=== PATIENT | female | born 1930 | race Caucasian/White ===

== ENCOUNTER 2017-12-16 23:43 | Inpatient (IN) | payer MEDICARE ==
[~2017-12-16] VITALS: Ht 165.1 cm; Wt 89.7 kg
[2017-12-17 01:47] LABS: Basophils # (auto) 0.1 uL; Basophils % (auto) 0.5 % (0.0-2.0); Eosinophils # (auto) 0 uL; Eosinophils % (auto) 0.3 % (0.0-7.0); Hematocrit 40.1 % (36.0-46.0); Hemoglobin 13.2 g/dL (12.2-16.2); Lymphocytes # (auto) 0.4 uL; Mean Corpuscular Hemoglobin 30.3 pg (28.0-32.0); Mean Corpuscular Hgb Conc. 32.9 g/dL (32.0-36.0); Mean Corpuscular Volume 92.3 fL (80.0-100.0); Monocytes # (auto) 0.6 uL; Neutrophils # (auto) 13.9 uL; Neutrophils % (auto) 92.2 % (37.0-80.0); Platelet Count (auto) 233 10^3/uL (140-450); Red Blood Cells 4.35 10^6/uL (4.0-5.20); Red Cell Distribution Width 14.8 % (11.8-14.3); White Blood Cell 15.1 10^3/uL (4.4-10.8)
[2017-12-17 01:58] LABS: Anion Gap 8 (5-15); Blood Urea Nitrogen 14 mg/dL (7-18); Carbon Dioxide 27 mmol/L (21-32); Chloride 107 mmol/L (98-107); Glucose 131 mg/dL (74-106); Potassium 4.2 mmol/L (3.5-5.1); Sodium 142 mmol/L (136-145)
[2017-12-17 01:59] LABS: Alanine Aminotransferase 17 U/L (13-56); Albumin 3.2 g/dL (3.4-5.0); Aspartate Aminotransferase 15 U/L (15-37); Calcium 8.9 mg/dL (8.5-10.1); GFR African American 62 mL/min; GFR Non-African American 51 mL/min
[2017-12-17 02:04] LABS: Alkaline Phosphatase 86 U/L (45-117); Bilirubin, Total 0.6 mg/dL (0.2-1.0); Total Protein 6.9 g/dL (6.4-8.2)
[2017-12-17] MEDS ORDERED: IPRATROPIUM BROM 0.5 MG/2.5ML INH SOL NEB ONE (02:45)
[2017-12-17] MEDS ORDERED: ALBUTEROL SULF 2.5 MG/0.5ML(0.5%) NEB SOLN NEB ONE (02:45)
[2017-12-17] MEDS ORDERED: methylPREDNISolone SOD SUCC 125 MG/2 ML VL IV ONE (02:45)
[2017-12-17] MEDS ORDERED: ACETAMINOPHEN 325 MG TAB PO PRN (05:30)
[2017-12-17] MEDS: LEVOFLOXACIN 500MG 100 ML IV SCH ×2 (05:30→11:38)
[2017-12-17] MEDS ORDERED: ONDANSETRON HCL 4 MG/2 ML VIAL IV PRN (05:30)
[2017-12-17] MEDS ORDERED: NITROGLYCERIN 0.4 MG SL TAB SL PRN (05:30)
[2017-12-17] MEDS ORDERED: MORPHINE SULFATE 8mg/ml INJ SDV IV PRN (05:30)
[2017-12-17 09:33] VITALS: BP 93/52
[2017-12-17] MEDS ORDERED: methylPREDNISolone SOD SUCC 125 MG/2 ML VL IV SCH (10:00)
[2017-12-17] MEDS: ENOXAPARIN SOD 40 MG/0.4 ML SYRINGE SC SCH (11:36)
[2017-12-17] MEDS: FAMOTIDINE 20 MG TAB PO SCH ×2 (11:36→23:10)
[2017-12-17 12:41] VITALS: BP 97/49
[2017-12-17] MEDS: SODIUM CHLORIDE 0.9% 1,000 ML IV SCH (13:00)
[2017-12-17] MEDS ORDERED: methylPREDNISolone SOD SUCC 40 MG/ML VL IV SCH (13:15)
[2017-12-17] MEDS ORDERED: methylPREDNISolone SOD SUCC 40 MG/ML VL IV ONE (13:15)
[2017-12-17] MEDS ORDERED: LEVOFLOXACIN 750MG 150 ML IV ONE (13:15)
[2017-12-17 14:38] VITALS: BP 119/64
[2017-12-17 17:00] VITALS: BP 99/63
[2017-12-17 21:52] VITALS: BP 104/57
[2017-12-17] MEDS: ATORVASTATIN 20 MG TAB PO SCH (23:10)
[2017-12-17] MEDS: TEMAZEPAM 15 MG CAP PO PRN (23:11)
[2017-12-17] MEDS: MONTELUKAST SODIUM 10 MG TAB PO SCH (23:11)
[2017-12-18] MEDS: IPRATROPIUM BROM 0.5 MG/2.5ML INH SOL NEB PRN ×3 (02:00→19:27)
[2017-12-18] MEDS: ALBUTEROL SULF 2.5 MG/0.5ML(0.5%) NEB SOLN NEB PRN ×3 (02:00→19:27)
[2017-12-18 04:42] VITALS: BP 104/58
[2017-12-18] MEDS: SODIUM CHLORIDE 0.9% 1,000 ML IV SCH (05:52)
[2017-12-18 06:33] LABS: Basophils # (auto) 0 uL; Eosinophils # (auto) 0 uL; Hematocrit 34.9 % (36.0-46.0); Hemoglobin 11.6 g/dL (12.2-16.2); Lymphocytes # (auto) 0.6 uL; Lymphocytes % (auto) 3.9 % (10.0-50.0); Mean Corpuscular Hemoglobin 30.8 pg (28.0-32.0); Mean Corpuscular Hgb Conc. 33.3 g/dL (32.0-36.0); Mean Corpuscular Volume 92.5 fL (80.0-100.0); Monocytes # (auto) 1.1 uL; Monocytes % (auto) 6.6 % (0.0-12.0); Neutrophils # (auto) 14.5 uL; Neutrophils % (auto) 89.5 % (37.0-80.0); Nucleated Red Blood Cells % 0.1 %; Platelet Count (auto) 194 10^3/uL (140-450); Red Blood Cells 3.77 10^6/uL (4.0-5.20); Red Cell Distribution Width 15.1 % (11.8-14.3); White Blood Cell 16.2 10^3/uL (4.4-10.8)
[2017-12-18 06:52] LABS: Albumin 2.8 g/dL (3.4-5.0); BUN/Creatinine Ratio 22.1; Bilirubin, Total 0.6 mg/dL (0.2-1.0); Calcium 8.9 mg/dL (8.5-10.1); Magnesium 2.3 mg/dL (1.6-2.6); Potassium 4.1 mmol/L (3.5-5.1); Total Protein 6.6 g/dL (6.4-8.2)
[2017-12-18 09:18] VITALS: BP 97/55
[2017-12-18] MEDS ORDERED: LEVOFLOXACIN 750MG 150 ML IV SCH (10:00)
[2017-12-18] MEDS ORDERED: LEVOFLOXACIN 250MG 50 ML IV SCH (10:00)
[2017-12-18] MEDS: LEVOFLOXACIN 750MG 150 ML IV SCH (11:44)
[2017-12-18] MEDS: methylPREDNISolone SOD SUCC 40 MG/ML VL IV SCH ×2 (11:45→21:09)
[2017-12-18] MEDS: ENOXAPARIN SOD 40 MG/0.4 ML SYRINGE SC SCH (11:45)
[2017-12-18] MEDS: FAMOTIDINE 20 MG TAB PO SCH ×2 (11:45→21:09)
[2017-12-18 12:20] VITALS: BP 115/49
[2017-12-18] MEDS ORDERED: SODIUM CHLORIDE 0.9% 1,000 ML IV SCH (12:45)
[2017-12-18 17:07] VITALS: BP 96/52
[2017-12-18 21:09] LABS: Urine Bacteria NONE SEEN /hpf (None Seen); Urine Blood Negative /uL (Negative); Urine Specific Gravity 1.033 (1.001-1.035); Urine WBC 11 /hpf (0 - 5)
[2017-12-18] MEDS: MONTELUKAST SODIUM 10 MG TAB PO SCH (21:09)
[2017-12-18] MEDS: ATORVASTATIN 20 MG TAB PO SCH (21:09)
[2017-12-18] MEDS: TEMAZEPAM 15 MG CAP PO PRN (21:10)
[2017-12-18 22:00] VITALS: BP 107/58
[2017-12-19] MEDS ORDERED: LOPE7.5C PO
[2017-12-19] MEDS ORDERED: HYDR-4683 PO
[2017-12-19] MEDS ORDERED: MONT10TA23 PO
[2017-12-19] MEDS ORDERED: ACET-1156 PO
[2017-12-19] MEDS ORDERED: HYDR-3682 PO
[2017-12-19] MEDS ORDERED: HYOS0.1250 PO
[2017-12-19] MEDS ORDERED: POM SL
[2017-12-19] MEDS ORDERED: FLUT250M2 INH
[2017-12-19] MEDS ORDERED: POM PO
[2017-12-19] MEDS ORDERED: LORA-654 GT
[2017-12-19] MEDS ORDERED: DOCU100T15 PO
[2017-12-19] MEDS ORDERED: SIMV-13 PO
[2017-12-19] MEDS ORDERED: LETR2.5T6 PO
[2017-12-19] MEDS ORDERED: NYST1POW12 XX
[2017-12-19] MEDS ORDERED: IPRAAER6 IN (00:01)
[2017-12-19] MEDS ORDERED: UMEC1INH IN (00:01)
[2017-12-19 05:30] VITALS: BP 111/52
[2017-12-19 07:26] LABS: Basophils # (auto) 0 uL; Basophils % (auto) 0.1 % (0.0-2.0); Eosinophils # (auto) 0 uL; Hematocrit 33.7 % (36.0-46.0); Hemoglobin 11.1 g/dL (12.2-16.2); Lymphocytes # (auto) 0.4 uL; Lymphocytes % (auto) 3.9 % (10.0-50.0); Mean Corpuscular Hemoglobin 31.1 pg (28.0-32.0); Mean Corpuscular Hgb Conc. 33.1 g/dL (32.0-36.0); Monocytes # (auto) 0.7 uL; Monocytes % (auto) 6.7 % (0.0-12.0); Neutrophils # (auto) 9.6 uL; Neutrophils % (auto) 89.3 % (37.0-80.0); Platelet Count (auto) 201 10^3/uL (140-450); Red Blood Cells 3.58 10^6/uL (4.0-5.20); Red Cell Distribution Width 15.3 % (11.8-14.3); White Blood Cell 10.7 10^3/uL (4.4-10.8)
[2017-12-19 07:36] LABS: BUN/Creatinine Ratio 27.9; Calcium 8.6 mg/dL (8.5-10.1); Potassium 4.4 mmol/L (3.5-5.1)
[2017-12-19 08:00] VITALS: BP 118/60
[2017-12-19 09:00] VITALS: BP 118/60
[2017-12-19] MEDS: ENOXAPARIN SOD 40 MG/0.4 ML SYRINGE SC SCH (09:18)
[2017-12-19] MEDS: FAMOTIDINE 20 MG TAB PO SCH (09:18)
[2017-12-19] MEDS: LEVOFLOXACIN 750MG 150 ML IV SCH (09:18)
[2017-12-19] MEDS: methylPREDNISolone SOD SUCC 40 MG/ML VL IV SCH (09:18)
[2017-12-19] MEDS ORDERED: SACC250C PO (12:06)
[2017-12-19] MEDS ORDERED: LEVO750T2 PO (12:06)
[2017-12-19 12:38] VITALS: BP 118/60
[2017-12-19 13:00] VITALS: BP 110/70
== END 2017-12-19 15:10 | DRG 871 ==
LOC: EDBD 23:43 → ER 23:51 → TELE 23:52 → TELE-CENTR 12-17 09:00
PROVIDERS: ADMIT Nurse Practitioner; ATTEND Internal Medicine
DX: A41.9 Sepsis, unspecified organism (principal); J18.1 Lobar pneumonia, unspecified organism; J96.21 Acute and chronic respiratory failure with hypoxia; N17.0 Acute kidney failure with tubular necrosis; J44.0 Chronic obstructive pulmonary disease with (acute) lower respiratory infection; J44.1 Chronic obstructive pulmonary disease with (acute) exacerbation; K86.1 Other chronic pancreatitis; M48.54XA Collapsed vertebra, not elsewhere classified, thoracic region, initial encounter for fracture; J98.11 Atelectasis; Z99.81 Dependence on supplemental oxygen; D72.823 Leukemoid reaction; F03.90 Unspecified dementia, unspecified severity, without behavioral disturbance, psychotic disturbance, mood disturbance, and anxiety; I25.10 Atherosclerotic heart disease of native coronary artery without angina pectoris; I51.7 Cardiomegaly; J20.8 Acute bronchitis due to other specified organisms; M40.204 Unspecified kyphosis, thoracic region; M85.80 Other specified disorders of bone density and structure, unspecified site; T38.0X5A Adverse effect of glucocorticoids and synthetic analogues, initial encounter; Z82.49 Family history of ischemic heart disease and other diseases of the circulatory system; Z85.3 Personal history of malignant neoplasm of breast; Z90.11 Acquired absence of right breast and nipple
CPT/HCPCS: 36415; 71045; 71250; 80048; 80053; 80061; 81001; 83605; 83690; 83735; 83880; 84484; 85025; 87040; 87081; 93005; 94640; 94761; 96374; J1956

== ENCOUNTER → 2018-10-08 | Outpatient (CLI) | payer MEDICARE ==
[~2018-10-08] MED LIST: ACET-1156 PO; DOCU100T15 PO; FLUT250M2 INH; HYDR-3682 PO; HYDR-4683 PO; HYOS0.1250 PO; IPRAAER6 IN; LETR2.5T6 PO; LEVO750T2 PO; LOPE7.5C PO; LORA-654 GT; MONT10TA23 PO; NYST1POW12 XX; POM PO; POM SL; SACC250C PO; SIMV-13 PO; UMEC1INH IN
[2018-10-08 16:50] LABS: Basophils # (auto) 0.1 uL; Basophils % (auto) 0.7 % (0.0-2.0); Eosinophils # (auto) 0.3 uL; Eosinophils % (auto) 3.6 % (0.0-7.0); Hematocrit 41.6 % (36.0-46.0); Hemoglobin 13.6 g/dL (12.2-16.2); Lymphocytes # (auto) 1.1 uL; Lymphocytes % (auto) 13.2 % (10.0-50.0); Mean Corpuscular Hemoglobin 29.9 pg (28.0-32.0); Mean Corpuscular Hgb Conc. 32.8 g/dL (32.0-36.0); Mean Corpuscular Volume 91.1 fL (80.0-100.0); Monocytes # (auto) 0.9 uL; Monocytes % (auto) 10.9 % (0.0-12.0); Neutrophils # (auto) 5.7 uL; Neutrophils % (auto) 71.6 % (37.0-80.0); Platelet Count (auto) 279 10^3/uL (140-450); Red Blood Cells 4.56 10^6/uL (4.0-5.20); Red Cell Distribution Width 15.6 % (11.8-14.3)
[2018-10-08 16:57] LABS: Albumin 3.1 g/dL (3.4-5.0); Calcium 8.8 mg/dL (8.5-10.1); Potassium 4.4 mmol/L (3.5-5.1)
[2018-10-08 17:02] LABS: BUN/Creatinine Ratio 10.4; Bilirubin, Total 0.4 mg/dL (0.2-1.0); Total Protein 7.4 g/dL (6.4-8.2)
== END | disposition home or self-care (01) ==
LOC: LAB 15:54
PROVIDERS: ATTEND Internal Medicine
DX: C50.919 Malignant neoplasm of unspecified site of unspecified female breast (principal)
CPT/HCPCS: 36415; 80053; 83615; 85025

== ENCOUNTER → 2019-05-30 | Outpatient (CLI) | payer MEDICARE, MEDICAID ==
[~2019-05-30] MED LIST changes: -HYDR-4683 PO; +HYDR-4833 PO; -LORA-654 GT; +LORA0.5T12 GT
== END | disposition home or self-care (01) ==
LOC: XYW 09:41
PROVIDERS: ATTEND Internal Medicine
DX: I10 Essential (primary) hypertension (principal); I31.3 Pericardial effusion (noninflammatory)
CPT/HCPCS: 93306